=== PATIENT | male | born 1975 | race Caucasian/White ===

== ENCOUNTER 2018-03-26 14:59 | Emergency (ER) | payer OTHER, SELFPAY ==
[2018-03-26] MEDS ORDERED: traMADol HCl 50 MG TAB ONE (15:12)
--- NOTE | 2018-03-26 15:37 | RAD ---
LEFT SHOULDER THREE VIEWS: 03/26/18 HISTORY: Fall. Left shoulder injury. FINDINGS: Comminuted slightly impacted fracture of the left humeral head and neck results in at least seven pie bekah. Slight increase in acromiohumeral distance suggests joint fluid with slight inferior subluxation of the humeral head. Fracture plane extends into the inferior margin of the articular surface of the humeral head. IMPRESSION: Extensively comminuted left humeral head and neck fracture with hemarthrosis. POS: GERMÁN
== END 2018-03-26 15:34 | disposition home or self-care (01) ==
LOC: SCSER 14:59
DX: S42.202A Unspecified fracture of upper end of left humerus, initial encounter for closed fracture (principal); I10 Essential (primary) hypertension; F41.9 Anxiety disorder, unspecified; F17.220 Nicotine dependence, chewing tobacco, uncomplicated; Z79.899 Other long term (current) drug therapy; W14.XXXA Fall from tree, initial encounter